=== PATIENT | male | born 1965 | race Caucasian/White ===

== ENCOUNTER 2016-06-30 10:33 | Emergency (ER) | payer MEDICAID, OTHER ==
[~2016-06-30] VITALS: Ht 157.5 cm; Wt 61.0 kg
[~2016-06-30 10:33] MED LIST: BACT2OIN TOP; OMPR20CCR PO
[2016-06-30 10:43] VITALS: BP 124/85; PULSE 65; RESP 15; TEMP 98.1; O2SAT 98
[2016-06-30] MEDS ORDERED: DICL50TA PO (11:39)
[2016-06-30] MEDS ORDERED: CETI10 PO (11:39)
[2016-06-30] MEDS ORDERED: OMEP20TA PO (11:39)
[2016-06-30] MEDS ORDERED: CLIN1CAP6 PO (11:39)
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
[2016-06-30] MEDS ORDERED: CLINDAMYCIN PHOS 600 MG/4 ML VIAL IM ONE (12:00)
[2016-06-30] MEDS ORDERED: CLINDAMYCIN PHOS 300 MG/2 ML VIAL IM ONE (12:00)
== END 2016-06-30 12:44 | disposition home or self-care (01) ==
LOC: PHEFT 10:33
DX: L03.116 Cellulitis of left lower limb (principal); E78.00 Pure hypercholesterolemia, unspecified
CPT/HCPCS: 96372